=== PATIENT | male | born 1960 | race Caucasian/White ===

== ENCOUNTER → 2016-10-22 | Outpatient (CLI) | payer OTHER ==
[~2016-10-22] MED LIST: ASPIRIN81 M1 PO; INVEGA9 MG PO; KEFLEX500 M1 PO; LIPITOR40 MG PO; MEDROL DOSEPAK4 MG PO; TRAZADONE HYDR100 MG PO; ULTRAM50 MG PO; VITAMIN D50000 I3 PO
--- NOTE | ~2016-10-22 | ST ---
[place], [place] EXERCISE STRESS TEST REPORT NAME: CARISSA GALVEZ [facility] #: [id number] UNIT #: [id number] ROOM: DOCTOR: MOSHE HURST MD BIRTHDATE: [birth year] DOS: 10/22/2016 INDICATIONS: History of coronary artery disease, central chest pain. PROCEDURE: The patient walked on a full Montez protocol stress test for 5 minutes 43 seconds and stopped for dyspnea and leg fatigue. He did not reproduce his chest pain. He achieved maximum heart rate of 136, which only represented 82% of his maximum predicted heart rate. At that point, he demanded that we stop the . He achieved a MET level of 7. The resting electrocardiogram showed an incomplete right bundle-branch block. With exercise, he had up to 1 mm of slowly upsloping ST segment depression, isolated to lead V3. No other diagnostic ST changes were seen. He did not have any significant arrhythmias with exercise. Despite his dyspnea, his oxygen saturation on room air at early recovery was 99%. His resting heart rate of 84, dwayne to 136. His resting blood pressure 128/72, dwayne to 174/70. IMPRESSION: 1. Limited exercise capacity for age. The patient had to stop exercising due to leg weakness and severe dyspnea. He did not reproduce his chest pain with exercise. 2. Resting EKG abnormality with incomplete right bundle-branch block. 3. Equivocal electrocardiographic response to exercise. The patient had up to 1 mm of slowly upsloping ST segment depression in lead V3 only. Changes resolved early in recovery. 4. Burnette treadmill score is 0.8 consistent with a moderate risk for future cardiac events. COMMENT: The patient's exercise capacity was limited and he did not achieve a target heart rate. Therefore, even though the test was not "abnormal," it is certainly not completely reassuring either. He is 5 years post-bypass surgery. My recommendation would be that he be studied further with a pharmacologic nuclear myocardial perfusion examination. MOSHE HURST MD CM:STRESS:EXERCISE STRESS TEST REPORT [id number] LIOR HURST MD
== END | disposition home or self-care (01) ==
LOC: CARD 00:29
DX: R07.89 Other chest pain (principal); I25.10 Atherosclerotic heart disease of native coronary artery without angina pectoris